=== PATIENT | female | born 1955 | race Caucasian/White ===

== ENCOUNTER 2021-01-30 21:08 | Observation (INO) | payer MEDICARE ==
[2021-01-30 21:29] LABS: Glucose,Whole Blood 144 mg/dL (75-99)
[2021-01-30] MEDS ORDERED: SODIUM CHLORIDE 0.9% 1,000 ML IV STA (21:36)
--- NOTE | 2021-01-30 21:44 | ED ---
Seizure HPI - General Chief Complaint: Seizure Stated Complaint: seizure Time Seen by Provider: 01/30/21 21:29 Source: EMS Mode of arrival: EMS Limitations: altered mental status - Related Data Home Medications Medication Instructions Recorded Confirmed Gabapentin [Neurontin] 400 mg PO TID 01/30/21 01/30/21 Lisinopril-Hctz 20-25 mg 1 tab PO DAILY 01/30/21 01/30/21 [Zestoretic 20-25] Metoprolol Tartrate [Lopressor] 25 mg PO BID 01/30/21 01/30/21 metFORMIN HCL 500 mg PO BID 01/30/21 01/30/21 Allergies Allergy/AdvReac Type Severity Reaction Status Date / Time clindamycin Allergy Intermediate Rash/Hives Verified 01/30/21 22:28 Review of Systems ROS Statement: Those systems with pertinent positive or pertinent negative responses have been documented in the HPI. ROS Other: All systems not noted in ROS Statement are negative. General Exam Limitations: altered mental status Course Vital Signs 01/30/21 01/30/21 01/30/21 21:16 21:25 22:21 Temperature 98.0 F Pulse Rate 75 73 74 Respiratory 16 18 18 Rate Blood Pressure 97/49 90/60 94/60 O2 Sat by Pulse 95 95 93 L Oximetry Medical Decision Making - Lab Data Result diagrams: 01/30/21 21:40 01/30/21 21:40 Lab Results 01/30/21 01/30/21 01/30/21 Range/Units 21:20 21:40 21:40 WBC 10.4 (3.8-10.6) k/uL RBC 4.49 (3.80-5.40) m/uL Hgb 12.6 (11.4-16.0) gm/dL Hct 37.8 (34.0-46.0) % MCV 84.2 (80.0-100.0) fL MCH 28.1 (25.0-35.0) pg MCHC 33.4 (31.0-37.0) g/dL RDW 15.0 (11.5-15.5) % Plt Count 290 (150-450) k/uL MPV 7.1 Neutrophils % 80 % Lymphocytes % 13 % Monocytes % 4 % Eosinophils % 2 % Basophils % 1 % Neutrophils # 8.3 H (1.3-7.7) k/uL Lymphocytes # 1.3 (1.0-4.8) k/uL Monocytes # 0.4 (0-1.0) k/uL Eosinophils # 0.2 (0-0.7) k/uL Basophils # 0.1 (0-0.2) k/uL Sodium 136 L (137-145) mmol/L Potassium 4.5 (3.5-5.1) mmol/L Chloride 109 H (98-107) mmol/L Carbon Dioxide 19 L (22-30) mmol/L Anion Gap 8 mmol/L BUN 43 H (7-17) mg/dL Creatinine 1.80 H (0.52-1.04) mg/dL Est GFR (CKD-EPI)AfAm 34 (>60 ml/min/1.73 sqM) Est GFR (CKD-EPI)NonAf 29 (>60 ml/min/1.73 sqM) Glucose 136 H (74-99) mg/dL POC Glucose (mg/dL) 144 H (75-99) mg/dL POC Glu Production Planner Brenda Yanez Calcium 9.2 (8.4-10.2) mg/dL Magnesium (1.6-2.3) mg/dL Total Bilirubin 0.3 (0.2-1.3) mg/dL AST 18 (14-36) U/L ALT 11 (4-34) U/L Alkaline Phosphatase 83 (38-126) U/L Total Protein 6.0 L (6.3-8.2) g/dL Albumin 3.7 (3.5-5.0) g/dL Salicylates 2.8 mg/dL Acetaminophen <10.0 ug/mL [place] <0.2 mmol/L Serum Alcohol <10 mg/dL 01/30/21 Range/Units 22:35 WBC (3.8-10.6) k/uL RBC (3.80-5.40) m/uL Hgb (11.4-16.0) gm/dL Hct (34.0-46.0) % MCV (80.0-100.0) fL MCH (25.0-35.0) pg MCHC (31.0-37.0) g/dL RDW (11.5-15.5) % Plt Count (150-450) k/uL MPV Neutrophils % % Lymphocytes % % Monocytes % % Eosinophils % % Basophils % % Neutrophils # (1.3-7.7) k/uL Lymphocytes # (1.0-4.8) k/uL Monocytes # (0-1.0) k/uL Eosinophils # (0-0.7) k/uL Basophils # (0-0.2) k/uL Sodium (137-145) mmol/L Potassium (3.5-5.1) mmol/L Chloride (98-107) mmol/L Carbon Dioxide (22-30) mmol/L Anion Gap mmol/L BUN (7-17) mg/dL Creatinine (0.52-1.04) mg/dL Est GFR (CKD-EPI)AfAm (>60 ml/min/1.73 sqM) Est GFR (CKD-EPI)NonAf (>60 ml/min/1.73 sqM) Glucose (74-99) mg/dL POC Glucose (mg/dL) (75-99) mg/dL POC Glu Production Planner ID Calcium (8.4-10.2) mg/dL Magnesium 2.1 (1.6-2.3) mg/dL Total Bilirubin (0.2-1.3) mg/dL AST (14-36) U/L ALT (4-34) U/L Alkaline Phosphatase (38-126) U/L Total Protein (6.3-8.2) g/dL Albumin (3.5-5.0) g/dL Salicylates mg/dL Acetaminophen ug/mL [place] mmol/L Serum Alcohol mg/dL - EKG Data -: EKG Interpreted by Me (EKG is sinus rhythm 82 KS 1:30 QRS 96 QTc 441) Disposition Clinical Impression: New onset seizure Disposition: ADMITTED IP TO THIS HOSP Condition: Undetermined Instructions (If sedation given, give patient instructions): Seizure/Epilepsy Discharge Instructions & Follow-Up Is patient prescribed a controlled substance at d/c from ED?: No Referrals: None,Stated [Primary Care Provider] - 1-2 days
[2021-01-30 22:00] LABS: Basophils # (A) 0.1 k/uL (0-0.2); Basophils % (A) 1 %; Eosinophils # (A) 0.2 k/uL (0-0.7); Eosinophils % (A) 2 %; HCT 37.8 % (34.0-46.0); HGB 12.6 gm/dL (11.4-16.0); Lymphocytes # (A) 1.3 k/uL (1.0-4.8); Lymphocytes % (A) 13 %; MCH 28.1 pg (25.0-35.0); MCHC 33.4 g/dL (31.0-37.0); MCV 84.2 fL (80.0-100.0); Mean Platelet Volume 7.1; Monocytes # (A) 0.4 k/uL (0-1.0); Monocytes % (A) 4 %; Neutrophils # (A) 8.3 k/uL (1.3-7.7); Neutrophils % (A) 80 %; Platelet Count 290 k/uL (150-450); RBC 4.49 m/uL (3.80-5.40); WBC 10.4 k/uL (3.8-10.6)
[2021-01-30 22:15] LABS: ALT 11 U/L (4-34); AST 18 U/L (14-36); Acetaminophen <10.0 ug/mL; African American GFR (CKD) 34 (>60 ml/min/1.73 sqM); Albumin 3.7 g/dL (3.5-5.0); Alcohol <10 mg/dL; Alkaline Phosphatase 83 U/L (38-126); Anion Gap 8 mmol/L; Blood Urea Nitrogen 43 mg/dL (7-17); Calcium 9.2 mg/dL (8.4-10.2); Carbon Dioxide 19 mmol/L (22-30); Chloride 109 mmol/L (98-107); Glucose 136 mg/dL (74-99); Lithium <0.2 mmol/L; Non-African American GFR(CKD) 29 (>60 ml/min/1.73 sqM); Potassium 4.5 mmol/L (3.5-5.1); Salicylate 2.8 mg/dL; Sodium 136 mmol/L (137-145); Total Bilirubin 0.3 mg/dL (0.2-1.3)
--- NOTE | 2021-01-30 22:25 | CT ---
EXAMINATION TYPE: CT brain wo con DATE OF EXAM: 01/30/2021 COMPARISON: None HISTORY: ams, seizure CT DLP: 1147.4 mGycm Automated exposure control for dose reduction was used. Ventricles have normal size. There is no mass effect nor midline shift. There is no sign of intracran ial hemorrhage. There is some mild cerebral atrophy. Calvarium is intact. Skull base is intact. There is normal aeration of the mastoid sinuses. There is some mucosal thickening in the left side sphenoi d sinus. IMPRESSION: Mild cerebral atrophy. No acute intracranial abnormality.
[2021-01-30] MEDS ORDERED: ONDANSETRON 4 MG/2 ML VIAL IVP PRN (23:50)
[2021-01-30] MEDS ORDERED: LORazepam 2 MG/ML INJ IV PRN (23:50)
[2021-01-30] MEDS ORDERED: NALOXONE 0.4 MG/ML 1 ML VIAL IV PRN (23:50)
--- NOTE | 2021-01-31 00:52 | P.HPIM ---
History of Present Illness H&P Date: 01/31/21 Patient is a 61-year-old female with a PMH of hypertension, type II DM, and coronary artery disease status post NC who presented to the emergency room with onset seizure. The patient reports that she had been in her usual state of health and was in her house standing in the bathroom when she suddenly felt dizzy. She proceeded to sit down and felt as though she was going get sick at which point she then laid down on the ground and lost consciousness. The subsequently witnessed grand mal seizure of an unknown duration, at which time he activated EMS. The patient is unable to recall the episode and I was not able to contact the since he was not at the bedside and no answer was obtained via the number in the chart. The patient denied any prior history of seizures or loss of consciousness. She reported feeling well for the past 1 week with no upper respiratory symptoms or headaches. Denied biting her tongue but reported feeling extremely weak when she regained consciousness and being confused. She reports that her mentation continues to improve as time passes since the episode. She denied starting any new medications. Further denied chest discomfort, shortness of breath, fever, chills, cough. Denied nausea, vomiting, abdominal pain, diarrhea. Denied headache, weakness, numbness, tingling, visual disturbances. CT brain in the emergency room was unremarkable except for mild cerebral atrophy with EKG showing sinus rhythm with marked sinus arrhythmia at [address]/T-wave changes noted as reviewed by me. Laboratory evaluation was remarkable for BUN 43 and creatinine 1.80 with no prior results available for comparison. Review of systems: Pertinent positives and negatives as discussed in HPI, a complete review of systems was performed and all other systems are negative. Physical examination: General: non toxic, no distress, appears at stated age, obese Derm: no unusual rashes/lesions no unusual ecchymoses, warm, dry Head: atraumatic, normocephalic, symmetric Eyes: EOMI, no lid lag, anicteric sclera, pupils equal round reactive to light ENT: Nose and ears atraumatic, no thrush, no pharyngeal erythema Neck: No thyromegaly, no cervical lymphadenopathy, trachea midline, supple Mouth: no lip lesion, mucus membranes moist, no tongue bites Cardiovascular: S1S2 reg, no murmur, positive posterior tibial pulse bilateral, no edema, capillary refill less than 2 seconds Lungs: CTA bilateral, no rhonchi, no rales , no accessory muscle use Abdominal: soft, nontender to palpation, no guarding, no appreciable organomegaly, normal bowel sounds Ext: no gross muscle atrophy, muscle strength 5 out of 5 in all 4 extremities grossly, no contractures, Neuro: CN II-XI grossly intact, light touch intact all 4 extremities, finger to nose within normal limits, Psych: Alert, oriented, appropriate affect Assessment/plan New-onset seizure, no obvious etiology noted -Seizure, fall, aspiration precautions -Neurology consult -Hold off on antiepileptic at this time -Neurochecks Kidney injury, acute versus chronic -Monitor for now -IV fluids Chronic conditions: Type II DM, hypertension, coronary artery disease -Hold HCTZ-Lisionpril in setting of kidney failure -Check A1c -Hold oral hyperglycemics -Lispro insulin sliding scale and blood glucose monitoring DVT prophylaxis -Heparin subcu The patient is admitted with an anticipated less than 2 midnight stay for evaluation of new-onset seizure. CODE STATUS: Full code Discussed with: Patient Anticipated discharge date: In a.m. Anticipated discharge place: Home Past Medical History - Past Family History Father Family Medical History: Hyperlipidemia Medications and Allergies Home Medications Medication Instructions Recorded Confirmed Type Gabapentin [Neurontin] 400 mg PO TID 01/30/21 01/30/21 History Lisinopril-Hctz 20-25 mg 1 tab PO DAILY 01/30/21 01/30/21 History [Zestoretic 20-25] Metoprolol Tartrate [Lopressor] 25 mg PO BID 01/30/21 01/30/21 History metFORMIN HCL 500 mg PO BID 01/30/21 01/30/21 History Allergies Allergy/AdvReac Type Severity Reaction Status Date / Time clindamycin Allergy Intermediate Rash/Hives Verified 01/30/21 22:28 Physical Exam Vitals: Vital Signs Temp Pulse Resp BP Pulse Ox 01/30/21 22:21 74 18 94/60 93 L 01/30/21 21:25 73 18 90/60 95 01/30/21 21:16 98.0 F 75 16 97/49 95 Intake and Output 01/30/21 01/30/21 01/31/21 14:59 22:59 06:59 Other: Weight 86.183 kg Results CBC & Chem 7: 01/30/21 21:40 01/30/21 21:40 Labs: Abnormal Lab Results - Last 24 Hours (Table) 01/30/21 01/30/21 01/30/21 Range/Units 21:20 21:40 21:40 Neutrophils # 8.3 H (1.3-7.7) k/uL Sodium 136 L (137-145) mmol/L Chloride 109 H (98-107) mmol/L Carbon Dioxide 19 L (22-30) mmol/L BUN 43 H (7-17) mg/dL Creatinine 1.80 H (0.52-1.04) mg/dL Glucose 136 H (74-99) mg/dL POC Glucose (mg/dL) 144 H (75-99) mg/dL Total Protein 6.0 L (6.3-8.2) g/dL
[2021-01-31 02:18] LABS: Glucose,Whole Blood 122 mg/dL (75-99)
[2021-01-31] MEDS ORDERED: SODIUM CHLORIDE 0.9% 1,000 ML IV ONE (02:58)
[2021-01-31] MEDS: SODIUM CHLORIDE 0.9% 1,000 ML IV SCH ×2 (03:37→10:05)
[2021-01-31 06:40] LABS: Basophils # (A) 0.1 k/uL (0-0.2); Basophils % (A) 1 %; Eosinophils # (A) 0.1 k/uL (0-0.7); Eosinophils % (A) 1 %; HCT 36.3 % (34.0-46.0); HGB 11.7 gm/dL (11.4-16.0); Lymphocytes # (A) 2.1 k/uL (1.0-4.8); Lymphocytes % (A) 22 %; MCH 28.1 pg (25.0-35.0); MCHC 32.3 g/dL (31.0-37.0); MCV 86.9 fL (80.0-100.0); Mean Platelet Volume 7.3; Monocytes # (A) 0.5 k/uL (0-1.0); Monocytes % (A) 5 %; Neutrophils # (A) 6.8 k/uL (1.3-7.7); Neutrophils % (A) 70 %; Platelet Count 244 k/uL (150-450); RBC 4.18 m/uL (3.80-5.40); WBC 9.7 k/uL (3.8-10.6)
[2021-01-31 06:42] LABS: Calcium 8.6 mg/dL (8.4-10.2); Phosphorus 4.8 mg/dL (2.5-4.5); Potassium 4.1 mmol/L (3.5-5.1); Total Bilirubin 0.2 mg/dL (0.2-1.3); Total Protein 5.3 g/dL (6.3-8.2)
[2021-01-31 07:17] LABS: Glucose,Whole Blood 105 mg/dL (75-99)
[2021-01-31] MEDS: INSULIN ASPART (NovoLOG) 100 UNIT/ML VIAL SQ SCH ×4 (07:30→20:48)
[2021-01-31] MEDS ORDERED: METOPROLOL TARTRATE 25 MG TAB PO SCH (09:00)
[2021-01-31] MEDS ORDERED: GABAPENTIN 400 MG CAP PO SCH (09:00)
[2021-01-31] MEDS: HEPARIN SODIUM,PORCINE/PF 5,000 UNIT/0.5 ML SYRINGE SQ SCH ×3 (10:05→23:08)
--- NOTE | 2021-01-31 11:40 | P.PN ---
Subjective Patient was seen and evaluated this morning. She is feeling a lot better. She denies any headache or vision change. No seizure activity since admission. Objective - Vital Signs Vital signs: Vital Signs Temp 98.2 F 01/31/21 04:53 Pulse 73 01/31/21 10:07 Resp 14 01/31/21 08:30 BP 92/64 01/31/21 10:07 Pulse Ox 98 01/31/21 10:07 Intake & Output 01/30/21 01/31/21 01/31/21 18:59 06:59 18:59 Intake Total 1260 Output Total 450 300 Balance 810 -300 Weight 87 kg Intake: Intake, IV Titration 1260 Amount Sodium Chloride 0.9% 1, 260 000 ml @ 130 mls/hr IV . Q7H42M [facility] Rx#:[id number] Sodium Chloride 0.9% 1, 1000 000 ml @ 999 mls/hr IV . Q1H1M [facility] Rx#:[id number] Output: Urine 450 300 Other: Voiding Method Bedside Commode Bedside Commode - Exam General: The patient is awake and alert, in no distress Eye: there is normal conjunctiva bilaterally. Neck: The neck is supple, there is no JVD. Cardiovascular: Normal S1-S2, no S3-S4, no murmurs. Respiratory: Lungs clear to auscultation bilaterally Gastrointestinal: Abdomen is soft, nontender Musculoskeletal: There is no pedal edema. Neurological:. Speech is normal. Skin: Skin is warm and dry - Labs CBC & Chem 7: 01/31/21 05:50 01/31/21 05:50 Labs: Abnormal Lab Results - Last 24 Hours (Table) 01/30/21 01/30/21 01/30/21 Range/Units 21:20 21:40 21:40 Neutrophils # 8.3 H (1.3-7.7) k/uL Sodium 136 L (137-145) mmol/L Chloride 109 H (98-107) mmol/L Carbon Dioxide 19 L (22-30) mmol/L BUN 43 H (7-17) mg/dL Creatinine 1.80 H (0.52-1.04) mg/dL Glucose 136 H (74-99) mg/dL POC Glucose (mg/dL) 144 H (75-99) mg/dL Plasma Lactic Acid Andrzej (0.7-2.0) mmol/L Phosphorus (2.5-4.5) mg/dL Total Protein 6.0 L (6.3-8.2) g/dL Albumin (3.5-5.0) g/dL 01/31/21 01/31/21 01/31/21 Range/Units 02:16 05:50 07:14 Neutrophils # (1.3-7.7) k/uL Sodium (137-145) mmol/L Chloride 112 H (98-107) mmol/L Carbon Dioxide 21 L (22-30) mmol/L BUN 37 H (7-17) mg/dL Creatinine 1.32 H (0.52-1.04) mg/dL Glucose 106 H (74-99) mg/dL POC Glucose (mg/dL) 122 H 105 H (75-99) mg/dL Plasma Lactic Acid Andrzej (0.7-2.0) mmol/L Phosphorus 4.8 H (2.5-4.5) mg/dL Total Protein 5.3 L (6.3-8.2) g/dL Albumin 3.0 L (3.5-5.0) g/dL 01/31/21 Range/Units 07:46 Neutrophils # (1.3-7.7) k/uL Sodium (137-145) mmol/L Chloride (98-107) mmol/L Carbon Dioxide (22-30) mmol/L BUN (7-17) mg/dL Creatinine (0.52-1.04) mg/dL Glucose (74-99) mg/dL POC Glucose (mg/dL) (75-99) mg/dL Plasma Lactic Acid Andrzej 0.6 L (0.7-2.0) mmol/L Phosphorus (2.5-4.5) mg/dL Total Protein (6.3-8.2) g/dL Albumin (3.5-5.0) g/dL Assessment and Plan Assessment: This is a 65-year-old female with past medical history noted below who presented to the emergency room with new onset seizure. Patient was evaluated in place in observation for further management of her medical problems noted below. 1. New onset seizure, computed tomography scan of the brain in the ED showed no acute findings. Awaiting neurology evaluation. EEG ordered. Continue seizure precautions. 2. Essential hypertension: Blood pressure borderline low. Continue to hold home dose of lisinopril/hydrochlorothiazide 3. Type 2 diabetes, hold home dose of metformin and continue sliding scale insulin 4. History of coronary artery disease with prior [place] 5. DVT prophylaxis with subcu heparin Today, I reviewed her medication list and lab work results. Discontinue IV fluids. Awaiting neurology evaluation.
[2021-01-31 12:04] LABS: Glucose,Whole Blood 118 mg/dL (75-99)
--- NOTE | 2021-01-31 16:58 | P.CNNES ---
History of Present Illness Consult date: 01/31/21 Reason for Consult: new-onset seizure History of Present Illness: The patient is a 65-year-old female who is seen in neurologic consultation on [facility] 2020, via teleneurology. The patient reports that she was at home and had sudden onset of dizziness. She apparently was standing in the afternoon. She describes his dizziness as a feeling of lightheadedness as well as vertigo. She says that when she stood the vertigo was so severe that she had to sit down. Then when sitting she continued to feel poorly and so she laid down on the floor. She reports severe nausea. Even when laying down, the vertigo continued. Patient states "I felt like I was going to have a seizure". She reports feeling herself shaking while she was laying on the floor. Then she reportedly lost [place] is. According to the history and physical, I patient's witnessed generalized tonic-clonic movements. Patient was confused following this episode. She says that she was laying on the floor and was unable to "move anything". She reports being confused. She was unable to figure out how to use her phone to call for help. She does recall the ambulance being at the home. She says that she was unable to initiate eye opening, on her own. She said when she was asked to open her eyes she was able to do so. Patient does not recall the ride in the ambulance. She does report remembering a little bit of her time in the emergency department . She recalls going to get a CT scan of her brain. She says she does not recall coming back from the test. When the patient awakened following this episode, she reports that her speech was slurred. She reports difficulty with word finding. She says that she was "repetitive". Patient denies a history of seizure. She has had episodes of syncope in the past. Today, patient reports feeling very sleepy. She does however feel much better today. She does report that her muscles are sore. She denies tongue biting, bowel and bladder incontinence and headache. Review of Systems the patient is reportedly being worked up for lupus Past Medical History Past Medical History: Diabetes Mellitus, Hyperlipidemia, Myocardial Infarction (NM) Last Myocardial Infarction Date:: unknown History of Any Multi-Drug Resistant Organisms: None Reported Past Surgical History: Heart Catheterization With Stent Past Anesthesia/Blood Transfusion Reactions: No Reported Reaction Date of Last Stent Placement:: unknown Past Psychological History: No Psychological Hx Reported Smoking Status: Unknown if ever smoked - Past Family History Father Family Medical History: Hyperlipidemia Medications and Allergies Home Medications Medication Instructions Recorded Confirmed Type Gabapentin [Neurontin] 400 mg PO TID 01/30/21 01/30/21 History Lisinopril-Hctz 20-25 mg 1 tab PO DAILY 01/30/21 01/30/21 History [Zestoretic 20-25] Metoprolol Tartrate [Lopressor] 25 mg PO BID 01/30/21 01/30/21 History metFORMIN HCL 500 mg PO BID 01/30/21 01/30/21 History Allergies Allergy/AdvReac Type Severity Reaction Status Date / Time clindamycin Allergy Intermediate Rash/Hives Verified 01/30/21 22:28 Physical Examination - Vital Signs Vital Signs: Vital Signs Temp Pulse Pulse Resp BP BP BP 01/31/21 12:47 90/62 01/31/21 12:11 73 16 89/48 01/31/21 11:45 98.2 F 79 14 88/47 01/31/21 10:07 73 92/64 01/31/21 08:30 73 14 01/31/21 07:46 01/31/21 04:53 98.2 F 61 14 84/49 01/31/21 03:34 93/50 01/31/21 03:00 81/52 01/31/21 02:40 60 80/47 01/31/21 02:00 98.5 F 61 12 81/55 01/31/21 01:43 70 16 97/46 01/31/21 00:20 70 18 102/53 01/30/21 22:21 74 18 94/60 01/30/21 21:25 73 18 90/60 01/30/21 21:16 98.0 F 75 16 97/49 Pulse Ox 01/31/21 12:47 01/31/21 12:11 95 01/31/21 11:45 98 01/31/21 10:07 98 01/31/21 08:30 01/31/21 07:46 95 01/31/21 04:53 96 01/31/21 03:34 01/31/21 03:00 01/31/21 02:40 01/31/21 02:00 91 L 01/31/21 01:43 97 01/31/21 00:20 95 01/30/21 22:21 93 L 01/30/21 21:25 95 01/30/21 21:16 95 Intake and Output 01/30/21 01/31/21 01/31/21 22:59 06:59 14:59 Intake Total 1260 Output Total 450 300 Balance 810 -300 Intake: Intake, IV Titration 1260 Amount Sodium Chloride 0.9% 1, 260 000 ml @ 130 mls/hr IV . Q7H42M [facility] Rx#:[id number] Sodium Chloride 0.9% 1, 1000 000 ml @ 999 mls/hr IV . Q1H1M [facility] Rx#:[id number] Output: Urine 450 300 Other: Voiding Method Bedside Commode Bedside Commode Weight 86.183 kg 87 kg Gen.: The patient is reclining in the bed. She is in no acute distress. She is obese. HEENT: Head is atraumatic, normocephalic. Fundus not visualized. There is no scleral icterus. Mucous membranes are moist. Neck: Supple Heart: Regular rate and rhythm without murmur Lungs: Clear to auscultation Extremities: Without edema Neurological examination Mental status: Patient is awake, alert and oriented 3. Her speech is clear. There is no dysarthria or aphasia. Cranial nerves: Pupils are equal at 2 mm and reactive. Visual amin are full to confrontation. Extraocular movements are intact. There is no nystagmus. Facial sensations intact. There is no facial asymmetry. Hearing is grossly intact. Uvula and palate are midline. Shoulder shrug is symmetric. Tongue pr otrudes midline, without laceration. Motor: Strength is 5/5 throughout Sensation: Grossly intact to light touch throughout Coordination: Finger to nose and [id number] testing are intact. Deep tendon reflexes: 2+/4+ throughout Results - Laboratory Findings CBC and BMP: 01/31/21 05:50 01/31/21 05:50 Abnormal Lab Findings: Abnormal Labs 01/30/21 01/30/21 01/30/21 21:20 21:40 21:40 Neutrophils # 8.3 H Sodium 136 L Chloride 109 H Carbon Dioxide 19 L BUN 43 H Creatinine 1.80 H Glucose 136 H POC Glucose (mg/dL) 144 H Plasma Lactic Acid Andrzej Phosphorus Total Protein 6.0 L Albumin 01/31/21 01/31/21 01/31/21 02:16 05:50 07:14 Neutrophils # Sodium Chloride 112 H Carbon Dioxide 21 L BUN 37 H Creatinine 1.32 H Glucose 106 H POC Glucose (mg/dL) 122 H 105 H Plasma Lactic Acid Andrzej Phosphorus 4.8 H Total Protein 5.3 L Albumin 3.0 L 01/31/21 01/31/21 07:46 11:46 Neutrophils # Sodium Chloride Carbon Dioxide BUN Creatinine Glucose POC Glucose (mg/dL) 118 H Plasma Lactic Acid Andrzej 0.6 L Phosphorus Total Protein Albumin Assessment and Plan Assessment: 1. Loss of consciousness with reported generalized tonic-clonic movements: Seizure versus syncope. Because of the patient's reported confusion and amnesia for the event, it is more likely to be seizure. 2. CT scan of the brain has been reviewed and is negative for acute hemorrhage infarct and mass 3. History of diabetes mellitus 4. History of hypertension I. History of hyperlipidemia Plan: 1. EEG 2. MRI of brain with and without gadolinium-seizure protocol Time with Patient: Greater than 30 (spent 40 minutes with patient via teleneurology)
[2021-01-31 17:09] LABS: Glucose,Whole Blood 114 mg/dL (75-99)
[2021-01-31 17:14] LABS: Hemoglobin A1C 6.1 % (4.0-6.0)
[2021-01-31 20:23] LABS: Glucose,Whole Blood 105 mg/dL (75-99)
[2021-02-01 07:13] LABS: Glucose,Whole Blood 105 mg/dL (75-99)
[2021-02-01] MEDS: INSULIN ASPART (NovoLOG) 100 UNIT/ML VIAL SQ SCH ×2 (07:33→12:00)
[2021-02-01] MEDS: HEPARIN SODIUM,PORCINE/PF 5,000 UNIT/0.5 ML SYRINGE SQ SCH (08:26)
[2021-02-01] MEDS ORDERED: LISINOPRIL-HCTZ 20-25 MG 1 EACH TAB PO SCH (09:00)
--- NOTE | 2021-02-01 11:12 | MR ---
EXAMINATION TYPE: MR brain wo/w con DATE OF EXAM: 02/01/2021 COMPARISON: CT brain 01/30/2021 HISTORY: Seizure TECHNIQUE: Multiplanar, multisequence images of the brain and brainstem is performed without and with IV contras t, utilizing 8 mL intravenous Gadavist . FINDINGS: Diffusion weighted images demonstrate no evidence of a recent infarct or other diffusion ab normality. There is moderate generalized degenerative changes with confluent and focal areas of abno rmal signal seen throughout the white matter bilaterally which are nonspecific. Midline structures demonstrate normal morphology. The craniocervical junction appears within normal limits. Post contrast images demonstrate no abnormal enhancement. The dural venous sinuses appear pa tent. Changes of mild chronic sinusitis and the globes are intact. IMPRESSION: 1. Degenerative and nonspecific white matter changes most typical remote white matter ischemia. 2. No evidence of enhancing mass.
[2021-02-01 11:55] LABS: Glucose,Whole Blood 106 mg/dL (75-99)
[2021-02-01 12:25] LABS: African American GFR (CKD) 69 (>60 ml/min/1.73 sqM); Anion Gap 3 mmol/L; Blood Urea Nitrogen 21 mg/dL (7-17); Calcium 8.9 mg/dL (8.4-10.2); Carbon Dioxide 23 mmol/L (22-30); Chloride 113 mmol/L (98-107); Glucose 97 mg/dL (74-99); Non-African American GFR(CKD) 60 (>60 ml/min/1.73 sqM); Potassium 4.6 mmol/L (3.5-5.1); Sodium 139 mmol/L (137-145)
[2021-02-01 12:48] VITALS: BP 109/71; PULSE 63; RESP 17; TEMP 98
--- NOTE | 2021-02-01 14:35 | P.PN ---
Subjective Progress Note Date: 02/01/21 I am seeing the patient for the first time for neurological management. Please refer to Dr. Sanches note for further details. The patient has not had any further seizure-like activity episodes. Objective - Vital Signs Vital signs: Vital Signs Temp 98 F 02/01/21 12:47 Pulse 63 02/01/21 12:47 Resp 17 02/01/21 12:47 BP 109/71 02/01/21 12:47 Pulse Ox 99 02/01/21 12:47 Intake & Output 01/31/21 02/01/21 02/01/21 18:59 06:59 18:59 Intake Total 240 400 Output Total 300 Balance -60 400 Intake: Oral 240 400 Output: Urine 300 Other: Voiding Method Bedside Commode Bedside Commode # Voids 4 3 - Exam GENERAL: The patient is lying in bed and is not in acute distress. NEUROLOGICAL: Higher mental function: The patient is awake, alert, oriented to self, place and time. Patient is following commands. No aphasia and no neglect. Cranial nerves: The pupils are round, equal and reactive to light and accommodation. Visual amin are full to confrontation throughout. Extraocular movement is intact no nystagmus is noted. Facial sensation is normal to touch throughout. The facial strength is normal throughout. Hearing is normal bilaterally to hand rub. Tongue is midline and moved [id number] without any difficulty. No dysarthria is noted. Shoulder shrug is normal bilaterally. Motor: The strength is 5 over 5 throughout. Normal tone and bulk. Cerebellum: Normal finger to nose bilaterally. Sensation: Sensation is normal to touch throughout. WORK-UP: MRI of the brain with and without is reported as degenerative nonspecific white matter changes most typical remote white matter ischemia. No evidence of enhancing mass at. Routine EEG (preliminary): Normal. There are no focal slowing, epileptiform discharges or seizure in the EEG - Labs CBC & Chem 7: 01/31/21 05:50 02/01/21 11:54 Labs: Abnormal Lab Results - Last 24 Hours (Table) 01/31/21 01/31/21 01/31/21 Range/Units 05:50 17:00 20:18 Chloride (98-107) mmol/L BUN (7-17) mg/dL POC Glucose (mg/dL) 114 H 105 H (75-99) mg/dL Hemoglobin A1c 6.1 H (4.0-6.0) % 02/01/21 02/01/21 02/01/21 Range/Units 06:57 11:39 11:54 Chloride 113 H (98-107) mmol/L BUN 21 H (7-17) mg/dL POC Glucose (mg/dL) 105 H 106 H (75-99) mg/dL Hemoglobin A1c (4.0-6.0) % Assessment and Plan Assessment: 1. Loss of consciousness with reported generalized tonic-clonic movements: Seiz ure versus syncope. Because of the patient's reported confusion and amnesia for the event, it is more likely to be seizure. 2. Regarding her questionable Lupus (unsure if she truly she has or not per patient but was told possibly she does) 3. History of diabetes mellitus 4. History of hypertension I. History of hyperlipidemia Plan: If the patient continues to have repeated episodes similar to this then I would recommend anti-epileptic drug as maintenance dose but for now, we'll hold off on antiepileptic drug since first episode. The patient needs to follow-up with a neurologist as an outpatient within 1-2 weeks and if she continues to have further episodes I recommend the ambulatory EEG as an outpatient to capture these at episodes. Regarding her questionable Lupus (unsure if she truly she has or not per patient but was told possibly she does), she will look into seeing another Film Editor for second opinion. Per [place] DMV patient is to avoid driving for 6 month until the seizure-free. Patient is to avoid heights, using heavy machinery and swimming unassisted. This was notified to the patient. From a neurological perspective, the patient is clear for discharge. Rigo Julio MD Neuro-Hospitalist Time with Patient: Less than 30
--- NOTE | 2021-02-01 14:41 | P.DS ---
Providers Date of admission: 01/30/21 23:50 Expected date of discharge: 02/01/21 Attending physician: Estrellita Felix MD Consults: 01/30/21 23:51 Consult Physician Routine Consulting Provider: Yodit Sanches Consult Reason/Comments: seixure Do you want consulting provider notified?: Yes Primary care physician: Stated None Hospital Course: This is a 65-year-old female with past medical history noted below who presented to the emergency room with suspected new onset seizure. Patient was evaluated in place in observation for further management of her medical problems noted below. 1. Seizure-like activity, computed tomography scan of the brain in the ED showed no acute findings. Patient was seen and evaluated by neurology. EEG reported normal. Patient also had a brain MRI with no acute findings. Patient was cleared by neurology for discharge. 2. Essential hypertension: Blood pressure borderline low. Continue to hold home dose of lisinopril/hydrochlorothiazide. Follow-up with PCP as directed. 3. Type 2 diabetes, resume home medication 4. History of coronary artery disease with prior OH Patient was seen and evaluated by me on the day of discharge. She is medically clear to go home. Follow-up with PCP as directed. Physical exam: General: The patient is awake and alert, in no distress Eye: there is normal conjunctiva bilaterally. Neck: The neck is supple, there is no JVD. Cardiovascular: Normal S1-S2, no S3-S4, no murmurs. Respiratory: Lungs clear to auscultation bilaterally Gastrointestinal: Abdomen is soft, nontender Musculoskeletal: There is no pedal edema. Neurological:. Speech is normal. Skin: Skin is warm and dry Patient Condition at Discharge: Undetermined Plan - Discharge Summary Discharge Rx Participant: No New Discharge Prescriptions: Continue Gabapentin [Neurontin] 400 mg PO TID metFORMIN HCL 500 mg PO BID Metoprolol Tartrate [Lopressor] 25 mg PO BID Discontinued Lisinopril-Hctz 20-25 mg [Zestoretic 20-25] 1 tab PO DAILY Discharge Medication List Gabapentin [Neurontin] 400 mg PO TID 01/30/21 [History] Metoprolol Tartrate [Lopressor] 25 mg PO BID 01/30/21 [History] metFORMIN HCL 500 mg PO BID 01/30/21 [History] Follow up Appointment(s)/Referral(s): None,Stated [Primary Care Provider] - 1-2 days Patient Instructions/Handouts: Seizure/Epilepsy Discharge Instructions & F ollow-Up Discharge Disposition: HOME SELF-CARE
--- NOTE | 2021-02-01 14:42 | EEG ---
ELECTROENCEPHALOGRAM REPORT DATE OF SERVICE: 02/01/2021. CLINICAL HISTORY: This is a 65-year-old woman with an episode of loss of consciousness and jerking of extremities. The video EEG is obtained to evaluate for seizure epileptiform activity. Relevant medication: The patient is not on any antiepileptic drugs. EEG TYPE: A routine 21 channel EEG is performed with visual using the 1020 electrode placed system. DESCRIPTION: Wakefulness and drowsiness are obtained. During wakefulness, there is a posterior- dominant rhythm of low to moderate voltage, reactive, well modulated of 9 hertz activity. During drowsiness there is slowing attenuation of background activity. There is no physiological sleep activity. There is no focal slowing. Interictal and ictal is none. ACTIVATION PROCEDURE: Photic stimulation did not evoke a posterior driving response. There is no abnormality during the photic stimulation. Hyperventilation is not performed. CLINICAL INTERPRETATION: This is a normal routine EEG. There are no focal slowing, epileptiform discharge or seizure on the EEG. Clinical correlation is recommended. CYNTHIA / REN: [id number] / MALVIN
== END 2021-02-01 15:00 | disposition home or self-care (01) ==
LOC: EC 21:08 → 5NMEDONC 23:50
PROVIDERS: ADMIT Internal Medicine; ATTEND Internal Medicine
DX: R56.9 Unspecified convulsions (principal); N19 Unspecified kidney failure; R11.0 Nausea; R47.81 Slurred speech; R41.0 Disorientation, unspecified; R41.3 Other amnesia; J32.9 Chronic sinusitis, unspecified; R55 Syncope and collapse; R42 Dizziness and giddiness; E11.9 Type 2 diabetes mellitus without complications; I10 Essential (primary) hypertension; I25.10 Atherosclerotic heart disease of native coronary artery without angina pectoris; I25.2 Old myocardial infarction; E78.5 Hyperlipidemia, unspecified; Z79.84 Long term (current) use of oral hypoglycemic drugs; Z79.899 Other long term (current) drug therapy; Z95.5 Presence of coronary angioplasty implant and graft; Z88.1 Allergy status to other antibiotic agents; Z83.49 Family history of other endocrine, nutritional and metabolic diseases
CPT/HCPCS: 96361 ×3; 96372 ×2; 96360; 99285; 36415; 94760; 95816; 93005; 80053 ×2; 80048; 83605; 80178; 83735 ×2; 84100; 85025 ×2; 80143; 83036; 87635; 80179; 70450; 70553; G0378 ×2; G0480; J1644 ×2; A9585; 80320